=== PATIENT | male | born 1995 | race African-American/Black ===

== ENCOUNTER 2017-01-08 01:00 | Emergency (ER) | payer SELFPAY ==
[2017-01-08] MEDS ORDERED: NORMAL SALINE 1000 ML 1,000 ML IV ONE (03:52)
--- NOTE | 2017-01-08 03:53 | ER Document Report ---
ED Syncope and Near Syncope - General Stated Complaint: POSSIBLE SYNCOPE Time Seen by Provider: 01/08/17 03:43 Notes: Patient is a 21-year-old male who comes emergency department for chief complaint of a syncopal episode. Patient states that he stood up and suddenly felt lightheaded and then fell onto the ground. He states that he fell onto his right shoulder and now his right shoulder hurts. He denies any headache, nausea, vomiting, focal numbness or weakness, he denies any shortness of breath , chest pain, or any current symptoms other than shoulder pain. He states he has done this before in the past, he takes no daily medications, he denies any recreational drugs or alcohol. TRAVEL OUTSIDE OF THE [place] IN LAST 30 DAYS: No Past Medical History - General Information source: Patient - Social History Smoking Status: Never Smoker Frequency of alcohol use: None Drug Abuse: None Lives with: Family Family History: Reviewed & Not Pertinent Patient has suicidal ideation: No Patient has homicidal ideation: No - Medical History Medical History: Negative Renal/ Medical History: Denies: Hx Peritoneal Dialysis Surgical Hx: Negative - Immunizations Immunizations up to date: Yes Hx Diphtheria, Pertussis, Tetanus Vaccination: Yes Review of Systems - Review of Systems Constitutional: No symptoms reported EENT: No symptoms reported Cardiovascular: See HPI Respiratory: No symptoms reported Gastrointestinal: No symptoms reported Genitourinary: No symptoms reported Male Genitourinary: No symptoms reported Musculoskeletal: No symptoms reported Skin: No symptoms reported Hematologic/Lymphatic: No symptoms reported Neurological/Psychological: See HPI Physical Exam - Vital signs Vitals: Temp Pulse Resp BP Pulse Ox 97.6 F 64 16 133/76 H 99 01/08/17 01:14 01/08/17 01:14 01/08/17 01:14 01/08/17 01:14 01/08/17 01:14 Interpretation: Normal - General General appearance: Appears well, Alert - HEENT Head: Normocephalic, Atraumatic Eyes: Normal Pupils: PERRL - Respiratory Respiratory status: No respiratory distress Chest status: Nontender Breath sounds: Normal Chest palpation: Normal - Cardiovascular Rhythm: Regular Heart sounds: Normal auscultation Murmur: No - Abdominal Inspection: Normal Distension: No distension Bowel sounds: Normal Tenderness: Nontender Organomegaly: No organomegaly - Back Back: Normal, Nontender - Extremities General upper extremity: Other - Patient has tenderness over the right shoulder , has difficulty performing full abduction without pain. Normal strength, normal distal neurovascular exam, can place arm behind back without difficulty, normal elbow and wrist exam. Mild tenderness over the right clavicle. No obvious deformity. General lower extremity: Normal inspection, Nontender, Normal color, Normal ROM , Normal temperature, Normal weight bearing. No: Kristal's sign - Neurological Neuro grossly intact: Yes Cognition: Normal Orientation: AAOx4 Ele Coma Scale Eye Opening: Spontaneous [place] Coma Scale Verbal: Oriented Ele Coma Scale Motor: Obeys Commands [place] Coma Scale Total: 15 Speech: Normal Motor strength normal: LUE, RUE, LLE, RLE Sensory: Normal - Psychological Associated symptoms: Normal affect, Normal mood - Skin Skin Temperature: Warm Skin Moisture: Dry Skin Color: Normal Course - Re-evaluation Re-evalutation: EKG showing sinus rhythm, PA interval is normal, there is appears to be J-point elevation in leads V2 and V3, no PA interval depressions, no evidence of Brugada syndrome, no ischemic findings. Discussed with Dr. uNnez. No comparison EKG. Patient young, healthy, lanky but muscular. He denies any chest pain or shortness of breath at any point. He looks very well. Other than patient's pain over his right shoulder with abduction his physical exam is unremarkable. I did not order the chemistry, CBC, cardiac enzymes, these were placed on protocol for the patient. These are reviewed, shows unremarkable CBC, unremarkable chemistry, indeterminate troponin at 0.02. Discussed with Dr. Nunez. Recommends d-dimer because of this. This was elevated. Recommend CAT scan performed of the chest. I discussed with patient the labs, the reason for this to rule out PE or any other acute abnormality in the chest. He does agree to this. If performed, shows no pulmonary emboli, no effusion, no abnormalities. Patient remains asymptomatic. Patient will be treated with medication for his shoulder, referred to cardiology, discussed return precautions. Patient states he will return if he develops chest pain or shortness of breath. - Vital Signs Vital signs: Temp Pulse Resp BP Pulse Ox 97.6 F 64 15 147/89 H 99 01/08/17 01:14 01/08/17 01:14 01/08/17 04:14 01/08/17 04:13 01/08/17 01:14 - Laboratory Result Diagrams: 01/08/17 04:30 01/08/17 04:30 Laboratory results interpreted by me: 01/08/17 01/08/17 04:30 04:30 D-Dimer 0.60 H Potassium 5.1 H Alkaline Phosphatase 51 L Creatine Kinase 636 H Discharge - Discharge Clinical Impression: Episode of syncope Qualifiers: Syncope type: unspecified Qualified Code(s): R55 - Syncope and collapse Right shoulder pain Qualifiers: Chronicity: acute Qualified Code(s): M25.511 - Pain in right shoulder Condition: Stable Disposition: HOME, SELF-CARE Additional Instructions: Your shoulder x-ray is normal. Take the naproxen and robaxin for this, apply ice to the shoulder, rest the shoulder. Your workup was indeterminate but the scan of your lungs shows no abnormality. Please followup with the cardiology referral for additional evaluation. Return to the ED for any concerning symptoms - chest pain, passing out, shortness of breath, etc. Syncopal Episode Syncope (fainting or near-fainting) can occur from many different health problems. Or it can be a simple fainting spell requiring no treatment. It is safe for you to go home, but further evaluation will likely be necessary. Your work-up may include tests for internal bleeding, heart disease, medication problems, or near-strokes. Tests are not always required, however, depending on the nature of your problem. The warning signs of an impending faint include: dizziness, lightheadedness , nausea, hot flashes, tingling, and weakness. If this happens, lay down and put your feet up, then wait until all of these symptoms have passed before standing up again. If these episodes become recurrent, or if you develop chest pain, heart palpitations, mental confusion, blurred vision, or headache, then you should call the physician, or go to the emergency room. Prescriptions: Methocarbamol [Robaxin 500 mg Tablet] 500 mg PO QID PRN #20 tablet PRN Reason: Naproxen [Naprosyn 375 Mg Tablet] 375 mg PO BID #20 tablet Referrals: SHERIF DIAZ MD [ACTIVE STAFF] - Follow up as needed MIRANDA MAXWELL MD [ACTIVE STAFF] - Follow up as needed
--- NOTE | 2017-01-08 04:24 | RADIOLOGY REPORT (SQ) ---
EXAM DESCRIPTION: SHOULDER RIGHT 2 OR MORE VIEWS COMPLETED DATE/TIME: 01/08/2017 4:08 am REASON FOR STUDY: fall on shoulder, pain COMPARISON: None. NUMBER OF VIEWS: Three views. TECHNIQUE: Internal rotation, external rotation, and Y view images acquired of the right shoulder. LIMITATIONS: None. FINDINGS: MINERALIZATION: Normal. BONES: No acute fracture or dislocation. No worrisome bone lesions. JOINTS: No dislocation. VISUALIZED LUNGS AND RIBS: No pneumothorax. No rib fracture. SOFT TISSUES: No radiopaque foreign body. OTHER: No other significant finding. IMPRESSION: NEGATIVE STUDY OF THE RIGHT SHOULDER. NO RADIOGRAPHIC EVIDENCE OF ACUTE INJURY. TECHNICAL DOCUMENTATION: JOB ID: [id number] [employer]- All Rights Reserved
[2017-01-08 04:41] LABS: ABSOLUTE MONOCYTES (AUTO) 0.3 10^3/uL (0.1-1.4); ABSOLUTE NEUT (AUTO) 3.4 10^3/uL (1.7-8.2); BASOPHILS % (AUTO) 0.5 % (0-2); EOSINOPHILS % (AUTO) 0.2 % (0-6); HEMATOCRIT 43.3 % (37.9-51.0); HEMOGLOBIN 14.5 g/dL (13.5-17.0); HGB HCT DIFFERENCE 0.2; LYMPHOCYTES % (AUTO) 20.8 % (13-45); MEAN CORPUSCULAR HEMOGLOBIN 29.7 pg (27.0-33.4); MEAN CORPUSCULAR HGB CONC 33.6 g/dL (32.0-36.0); MEAN CORPUSCULAR VOLUME 89 fl (80-97); MONOCYTES % (AUTO) 6.3 % (3-13); RED BLOOD COUNT 4.89 10^6/uL (4.35-5.55); RED CELL DISTRIBUTION WIDTH 13.2 % (11.5-14.0); SEGMENTED NEUTROPHILS % (AUTO) 72.2 % (42-78); WHITE BLOOD COUNT 4.8 10^3/uL (4.0-10.5)
[2017-01-08 04:58] LABS: ALANINE AMINOTRANSFERASE 29 U/L (10-40); ALBUMIN 4.8 g/dL (3.7-5.6); ALKALINE PHOSPHATASE 51 U/L (65-260); ANION GAP 11 (5-19); ASPARTATE AMINO TRANSFERASE 36 U/L (10-45); BILIRUBIN,DIRECT 0.3 mg/dL (0.0-0.4); BILIRUBIN,TOTAL 0.6 mg/dL (0.2-1.3); BLOOD UREA NITROGEN 14 mg/dL (7-20); CALCIUM 10.2 mg/dL (8.4-10.2); CARBON DIOXIDE 29 mmol/L (22-30); CHLORIDE 101 mmol/L (98-107); CREATINE KINASE 636 U/L (55-170); CREATININE RESULT 1.13 mg/dL (0.52-1.25); GLUCOSE 84 mg/dL (75-110); POTASSIUM 5.1 mmol/L (3.6-5.0); SODIUM 140.8 mmol/L (137-145)
[2017-01-08 05:13] LABS: CREATINE KINASE MB 1.12 ng/mL (<4.55); TROPONIN I 0.02 ng/mL
--- NOTE | 2017-01-08 06:56 | RADIOLOGY REPORT (SQ) ---
EXAM DESCRIPTION: CTA CHEST COMPLETED DATE/TIME: 01/08/2017 6:42 am REASON FOR STUDY: syncope, elevated D-Dimer(0.60) COMPARISON: CR right shoulder, 01/08/2017. TECHNIQUE: CT scan of the chest performed using helical scanning technique with dynamic intravenous contrast injection. Images reviewed with lung, soft tissue and bone windows. Reconstructed coronal and sagittal MPR images reviewed. Additional 3 dimensional post-processing performed to develop Maximal Intensity Projection images (CO P). All images stored on PACS. All CT scanners at this facility use dose modulation, iterative reconstruction, and/or weight based d osing when appropriate to reduce radiation dose to as low as reasonably achievable (ALARA). [facility]: Dose Right [facility]: CareDose [facility]: Dose Right [facility]: Teradose 4D [facility]: Surface Tension CONTRAST TYPE AND DOSE: contrast/concentration: Isovue 370.00 mg/ml; Total Contrast Delivered: 100.0 ml; Total Saline Delivered: 45.0 ml RENAL FUNCTION: None required. The patient is less than 50 years old. RADIATION DOSE: Up-to-date CT equipment and radiation dose reduction techniques were employed. CTDIv ol: 20.3 mGy. DLP: 762 mGy-cm. . LIMITATIONS: None. FINDINGS: LUNGS AND PLEURA: No masses, infiltrates, pneumothorax. No pleural effusions, calcificati ons. AORTA AND GREAT VESSELS: No aneurysm or dissection. HEART: No pericardial effusion. PULMONARY ARTERIES: No emboli visualized in the main pulmonary arteries or the segmental branches. HILAR AND MEDIASTINAL STRUCTURES: No identified masses or abnormal nodes. HARDWARE: None in the chest. UPPER ABDOMEN: No significant findings. Limited exam. THYROID AND OTHER SOFT TISSUES: No masses. No adenopathy. BONES: No acute or significant finding. 3D MIPS: Confirm above findings. OTHER: Moderate gynecomastia. IMPRESSION: NORMAL CTA OF THE CHEST. NO PULMONARY EMBOLI. TECHNICAL DOCUMENTATION: JOB ID: [id number] Quality ID # [id number]: Final reports with documentation of one or more dose reduction techniques (e.g., Au tomated exposure control, adjustment of the mA and/or kV according to patient size, use of iterative reconstruction technique) 2010 [employer]- All Rights Reserved
--- NOTE | 2017-01-08 08:14 | EKG REPORT ---
SEVERITY:- ABNORMAL ECG - SINUS RHYTHM ST ELEVATION IN ANTERIOR WALL, CLINICAL CORRELATION NEEDED, WORKUP TO R/O ACS, AMI, NO OLD EKG TO CO MPARE. : Confirmed by: Ghanshyam Davison MD 08-Jan-2017 08:13:14
[2017-01-08 08:20] VITALS: BP 124/78
== END 2017-01-08 08:29 | disposition home or self-care (01) ==
LOC: ER 01:00
DX: R55 Syncope and collapse (principal); M25.511 Pain in right shoulder; W19.XXXA Unspecified fall, initial encounter; Y93.89 Activity, other specified; R79.1 Abnormal coagulation profile
CPT/HCPCS: 93005; 99285; 36415; 82553; 82550; 85025; 80053; 84484; 85379; 73030; 71275; 93010; J7030